=== PATIENT | male | born 1955 | race Caucasian/White ===

== ENCOUNTER 2017-03-28 13:54 | Emergency (ER) | payer OTHER | END 2017-03-28 16:37 | disposition home or self-care (01) | LOC: E/R 16:37 | DX: J06.9 Acute upper respiratory infection, unspecified (principal); I10 Essential (primary) hypertension; Z79.84 Long term (current) use of oral hypoglycemic drugs | CPT/HCPCS: 99283; Z7502 ==

== ENCOUNTER 2017-08-21 19:03 | Emergency (ER) | payer OTHER | END 2017-08-21 19:30 | disposition home or self-care (01) | LOC: E/R 19:03 | DX: L03.113 Cellulitis of right upper limb (principal); I10 Essential (primary) hypertension; E11.9 Type 2 diabetes mellitus without complications; Z79.84 Long term (current) use of oral hypoglycemic drugs | CPT/HCPCS: 99284; Z7502 ==

== ENCOUNTER 2018-06-24 06:59 | Day surgery (SDC) | payer OTHER ==
[2018-06-24] MEDS ORDERED: PROPOFOL 40 ML (08:09)
== END 2018-06-24 11:49 | disposition home or self-care (01) ==
LOC: GIL 06:59
DX: K92.1 Melena (principal); D12.3 Benign neoplasm of transverse colon; K64.8 Other hemorrhoids; I10 Essential (primary) hypertension; E78.5 Hyperlipidemia, unspecified; E11.9 Type 2 diabetes mellitus without complications
CPT/HCPCS: 45380; 82962; 88305